=== PATIENT | female | born 1995 | race Caucasian/White ===

== ENCOUNTER 2017-01-19 03:33 | Emergency (ER) | payer OTHER ==
[~2017-01-19 03:33] MED LIST: ALBUTEROL17 GM; AMOXICILLIN875 MG PO; AUGMENTIN PO; BACTROBAN22 GM TOP; CETIRIZINE HCL10 MG PO; ENALAPRIL MALEA10 MG PO; FLEXERIL10 M1 PO; FLOMAX0.4 M1; GLUCOPHAGE500 MG PO; HYCODAN60 ML 5MG/ PO; LEVAQUIN750 MG; LEVOTHROID137 MCG PO; MOTRIN600 MG PO; NAPROSYN375 MG; PHENERGAN DM PO; PHENERGAN25 M1; ROBAXIN500 MG PO; SEPTRA DS PO; SYNTHROID; SYNTHROID25 MCG PO; TESSALON200 MG PO; TYLENOL #3; UNKNOWN BP MED; VASOTEC; VASOTEC PO; VASOTEC10 MG PO; VOLTAREN50 MG PO; ZOFRAN ODT4 MG PO; [UNRECOGNIZED DRUG - REMARK]
[2017-01-19] MEDS ORDERED: LEVO-T175 MCG PO (03:43)
[2017-01-19] MEDS ORDERED: WATER PILL (03:43)
== END 2017-01-19 04:07 | disposition home or self-care (01) ==
LOC: SED 03:33
DX: S63.521A Sprain of radiocarpal joint of right wrist, initial encounter (principal); F17.200 Nicotine dependence, unspecified, uncomplicated; X58.XXXA Exposure to other specified factors, initial encounter; Y93.89 Activity, other specified; Y92.009 Unspecified place in unspecified non-institutional (private) residence as the place of occurrence of the external cause
CPT/HCPCS: 29125; 99283